=== PATIENT | female | born 1990 | race Caucasian/White ===

== ENCOUNTER 2018-07-14 12:01 | Emergency (ER) | payer SELFPAY ==
[~2018-07-14] VITALS: Ht 162.6 cm; Wt 125.0 kg
[2018-07-14] MEDS ORDERED: ALBU8HFA IH (12:24)
[2018-07-14] MEDS ORDERED: IPRATROPIUM BROMIDE 0.5 MG/2.5 ML NEB SOLUTION NEB ONE (12:30)
[2018-07-14] MEDS ORDERED: GuaiFENesin/D-METHORPHAN [SUGAR-FREE] 200-20MG/10 ML SYRUP UDCUP PO ONE (12:30)
[2018-07-14] MEDS ORDERED: ALBUTEROL SULFATE 2.5 MG/0.5 ML NEB SOLUTION NEB ONE (12:30)
[2018-07-14 13:32] VITALS: BP 153/95
== END 2018-07-14 13:44 | disposition home or self-care (01) ==
LOC: EMS 12:04
DX: J40 Bronchitis, not specified as acute or chronic (principal); R03.0 Elevated blood-pressure reading, without diagnosis of hypertension
CPT/HCPCS: 94640

== ENCOUNTER 2018-09-04 12:42 | Emergency (ER) | payer MEDICAID ==
[~2018-09-04] VITALS: Ht 165.1 cm; Wt 136.4 kg
[~2018-09-04 12:42] MED LIST: ALBU8HFA IH
[2018-09-04] MEDS ORDERED: CYCLOBENZAPRINE HCL 10 MG TABLET PO ONE (14:30)
[2018-09-04] MEDS ORDERED: LIDOCAINE 5% TRANSDERMAL PATCH TD ONE (14:30)
[2018-09-04] MEDS ORDERED: HYDROCODONE/ACETAMINOPHEN 5-325 MG TABLET PO ONE (14:30)
[2018-09-04 16:02] VITALS: BP 138/96
== END 2018-09-04 16:05 | disposition home or self-care (01) ==
LOC: EMS 12:42
DX: M54.41 Lumbago with sciatica, right side (principal); M79.604 Pain in right leg; J45.909 Unspecified asthma, uncomplicated

== ENCOUNTER 2019-01-14 18:28 | Emergency (ER) | payer SELFPAY ==
[~2019-01-14] VITALS: Ht 162.6 cm; Wt 136.4 kg
[2019-01-14] MEDS ORDERED: LISI-662 PO (19:15)
[2019-01-14] MEDS ORDERED: LISINOPRIL 10 MG TABLET PO ONE (21:15)
[2019-01-14] MEDS ORDERED: GuaiFENesin/D-METHORPHAN [SUGAR-FREE] 200-20MG/10 ML SYRUP UDCUP PO ONE (21:15)
[2019-01-14] MEDS ORDERED: IPRATROPIUM BROMIDE 0.5 MG/2.5 ML NEB SOLUTION NEB ONE (21:15)
[2019-01-14] MEDS ORDERED: ALBUTEROL SULFATE HFA 90 MCG/PUFF 8 GM INHALER IH ONE (21:15)
[2019-01-14] MEDS ORDERED: ACETAMINOPHEN 500 MG TABLET PO ONE (21:15)
[2019-01-14] MEDS ORDERED: ALBUTEROL SULFATE 2.5 MG/0.5 ML NEB SOLUTION NEB ONE (21:15)
[2019-01-14 21:52] VITALS: BP 152/98
== END 2019-01-14 21:50 | disposition home or self-care (01) ==
LOC: EMS 18:29
DX: J45.901 Unspecified asthma with (acute) exacerbation (principal); J02.9 Acute pharyngitis, unspecified; I10 Essential (primary) hypertension; F17.210 Nicotine dependence, cigarettes, uncomplicated
CPT/HCPCS: 94640; 99406; J3535

== ENCOUNTER 2019-10-22 18:44 | Emergency (ER) | payer SELFPAY ==
[~2019-10-22] VITALS: Ht 170.2 cm; Wt 115.0 kg
[~2019-10-22 18:44] MED LIST changes: +LISI-662 PO
[2019-10-22] MEDS ORDERED: KETOROLAC TROMETHAMINE 30 MG/ML VIAL IM ONE (20:30)
[2019-10-22] MEDS ORDERED: ONDANSETRON HCL 4 MG/2 ML VIAL IM ONE (20:30)
[2019-10-22] MEDS ORDERED: ACETAMINOPHEN 325 MG TABLET PO ONE (20:45)
[2019-10-22 21:33] LABS: INFLUENZA TYPE A NEGATIVE FOR TYPE A (NEGATIVE); INFLUENZA TYPE B NEGATIVE FOR TYPE B (NEGATIVE)
[2019-10-22 22:06] VITALS: BP 130/81
== END 2019-10-22 22:09 | disposition home or self-care (01) ==
LOC: EMS 18:45
DX: J06.9 Acute upper respiratory infection, unspecified (principal); I10 Essential (primary) hypertension; J45.909 Unspecified asthma, uncomplicated
CPT/HCPCS: 71045; 81025; 87804; 96372; 99284; J1885; J2405